=== PATIENT | male | born 1985 | race African-American/Black ===

== ENCOUNTER 2018-02-09 12:45 | Emergency (ER) | payer MEDICAID, OTHER ==
[~2018-02-09] VITALS: Ht 170.2 cm; Wt 76.0 kg
[~2018-02-09 12:45] MED LIST: COR12 PO; FURO-151 MT; HYDR-4135 PO; LOSA50TA3 PO; NIFE60TA64 PO
[2018-02-09 13:52] VITALS: BP 117/82
== END 2018-02-09 15:00 | disposition left against medical advice (07) ==
LOC: ER 12:45
DX: R10.9 Unspecified abdominal pain (principal); I13.2 Hypertensive heart and chronic kidney disease with heart failure and with stage 5 chronic kidney disease, or end stage renal disease; N18.6 End stage renal disease; I50.9 Heart failure, unspecified; I25.2 Old myocardial infarction; Z88.0 Allergy status to penicillin; F12.10 Cannabis abuse, uncomplicated; Z99.2 Dependence on renal dialysis
CPT/HCPCS: 99283